=== PATIENT | male | born 1965 | race Caucasian/White ===

== ENCOUNTER 2016-08-05 14:06 | Emergency (ER) | payer OTHER | END 2016-08-05 14:23 | disposition home or self-care (01) | LOC: ER 14:06 | DX: T63.301A Toxic effect of unspecified spider venom, accidental (unintentional), initial encounter (principal); F17.210 Nicotine dependence, cigarettes, uncomplicated; Z88.0 Allergy status to penicillin; Z88.6 Allergy status to analgesic agent ==

== ENCOUNTER 2016-10-02 22:25 | Emergency (ER) | payer OTHER | END 2016-10-03 03:11 | disposition home or self-care (01) | LOC: ER 22:25 | DX: E86.0 Dehydration (principal); R25.2 Cramp and spasm; F17.210 Nicotine dependence, cigarettes, uncomplicated; Z79.899 Other long term (current) drug therapy; Z88.0 Allergy status to penicillin; Z88.6 Allergy status to analgesic agent | CPT/HCPCS: 36415; 96360; 96361 ==